=== PATIENT | male | born 1995 | race Native Hawaiian/Other Pacific Islander ===

== ENCOUNTER 2020-05-31 10:33 | Emergency (ER) | payer MEDICAID ==
[~2020-05-31] VITALS: Ht 182.9 cm; Wt 100.3 kg
[2020-05-31 10:36] VITALS: BP 144/77
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
--- NOTE | 2020-05-31 10:40 | NUR ---
PATIENT AMBULATED TO BED 7 AT THIS TIME.
--- NOTE | 2020-05-31 10:41 | NUR ---
DR. DALEY AT BEDSIDE EVALUATING PATIENT.
[2020-05-31] MEDS ORDERED: ACETAMINOPHEN EXTRA STRENGTH 500 MG TAB PO ONE (10:45)
[2020-05-31] MEDS ORDERED: IBUPROFEN 400 MG TAB PO ONE (10:45)
--- NOTE | 2020-05-31 10:53 | NUR ---
X-Ray at bedside.
--- NOTE | 2020-05-31 11:28 | NUR ---
4 INCH ORTHOGLASS USED TO APPLY SHORT ARM VOLAR SPLINT TO RIGHT ARM. PMSC'S ASSESSED AND WNL. PATIENT TOLERATED SPLINT WELL.
--- NOTE | 2020-05-31 11:30 | NUR ---
Short arm volar splint placed to pts right arm, +pulses, skin warm dry and intact s/p placement. Pt verbalizes understanding of splint.
[2020-05-31 11:31] VITALS: BP 144/77
== END 2020-05-31 11:31 | disposition home or self-care (01) ==
LOC: MED 10:33
DX: S62.312A Displaced fracture of base of third metacarpal bone, right hand, initial encounter for closed fracture (principal); Y04.0XXA Assault by unarmed brawl or fight, initial encounter; Y93.89 Activity, other specified; Y92.89 Other specified places as the place of occurrence of the external cause; Y99.8 Other external cause status
CPT/HCPCS: 29125; 73130; 99283; Q0092